=== PATIENT | male | born 1980 | race African-American/Black ===

== ENCOUNTER 2025-07-26 23:35 | Emergency (ER) | payer SELFPAY ==
[2025-07-26 23:36] VITALS: BP 99/84; PULSE 94; RESP 18; TEMP 36.6; O2SAT 100; BMI 20.8
== END 2025-07-26 23:45 | disposition left against medical advice (07) ==
LOC: ED 23:49
DX: Z00.00 Encounter for general adult medical examination without abnormal findings (principal)
CPT/HCPCS: 99281

== ENCOUNTER 2025-08-04 06:34 | Emergency (ER) | payer MEDICAID, SELFPAY ==
[2025-08-04 06:35] VITALS: BP 130/66; PULSE 70; RESP 18; TEMP 36.6; O2SAT 100; BMI 20.9
[2025-08-04] MEDS: Tetracaine 0.5% Ophthalmic Bottle 1 DRP RIGHT EYE (07:02)
--- NOTE | 2025-08-04 07:12 | EX.ED.VIS.EY ---
HPI History of Present Illness Chief Complaint: Eye Problem Informant: patient Narrative Narrative: Patient is a 44-year-old male who reports no significant past medical history. He states that he wears contacts but does not typically take them out to sleep. 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 He reports he went to bed normally and then woke this morning with right eye redness and pain. He states has been increased tearing and light sensitivity as well. He denies any direct trauma. He states that he did sleep in his contact. He states he cannot get the contact out of the right eye and with persistent pain he presents for evaluation. [facility] Medical History no medical history no medical history Home Medications ?Medication ?Instructions ?Recorded ?Last Taken ?Type ciprofloxacin HCl 0.3 % eye drops 2 drp RIGHT EYE 4X/DAY 5 days #10 08/04/25 Unknown Rx mL oxycodone-acetaminophen 5 mg-325 1 tab PO Q6H PRN pain 3 days #12 08/04/25 Unknown Rx mg tablet (Percocet) tabs Allergy/AdvReac Type Severity Reaction Status Date / Time No Known Allergies Allergy Verified 08/04/25 06:38 Social History Smoking Status: Current every day smoker tobacco type: e-cigarettes ROS ROS ED Constitutional Constitutional ED: Denies chills or fever(s) Eyes Eyes: Reports other Details: Positive right eye pain increased tearing and light sensitivity ENT ENT ED: Denies sore throat Cardiovascular Cardiovascular: Denies chest pain Respiratory/Chest Respiratory/Chest: Denies cough or dyspnea Gastrointestinal Gastrointestinal: Denies abdominal pain, diarrhea, nausea or vomiting Musculoskeletal Musculoskeletal: Denies myalgias Integumentary Denies rash Neurologic Neurologic: Denies headache(s) Hematologic/Lymphatic Hematologic/Lymphatic: Denies easy bleeding or easy bruising EXAM Physical Exam Const Vital Signs: 08/04/25 06:35 Temperature 98 F Temperature Source Oral Pulse Rate 70 Respiratory Rate 18 Blood Pressure 130/66 H Blood Pressure Mean 87 Pulse Ox 100 Oxygen Delivery Method Room Air Positive well nourished and well developed General Appearance ED: well developed HEENT HEENT Narrative: Normocephalic atraumatic Eyes PERRL and EOMs intact bilaterally Eyes Narrative: Pupils are equal reactive to light and accommodation and extraocular muscles are intact There is scleral injection present diffusely through the right eye with increased tearing. There is mild soft tissue swelling of both the upper and lower eyelid. The upper eyelid was everted there is no retained foreign body. The patient did receive complete relief of pain with tetracaine. I was able to remove the contact from the right eye. After this fluorescein was applied. This displayed a corneal abrasion around the 6 o'clock position over top the iris which correlates with the patient's symptoms. Negative Sidel sign. Remainder of the exam is normal Neck supple Resp normal respiratory effort and clear to auscultation bilaterally Cardio regular rate and regular rhythm Extremity normal to inspection Neuro oriented x3, CN's II-XII intact bilaterally, moves all extremities and no sensory deficits noted Sensorium / Orientation: alert Motor Exam: strength 5/5 throughout Psych mental status grossly normal Skin no rashes or lesions noted and no wounds MDM MDM MDM Narrative Medical decision making narrative: Patient presented to the ER with stable vitals. He reported nontraumatic pain to the right eye. 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 As physical exam was most consistent with a corneal abrasion I did not feel the need for imaging or laboratory studies as I have low concern for infection such as periorbital or orbital cellulitis. Physical exam did not show any sign of globe rupture as there was a negative Sidel sign. No hyphema was noted which also correlates with no reported trauma. Physical exam did show the retained contact which was removed and underneath this there is a corneal abrasion. At this time as the offending agent/the contact was removed and he does not have signs of globe rupture or secondary infection there is no need for emergent ophthalmology consultation. The patient be placed on ciprofloxacin eyedrops to prevent secondary infection from the corneal abrasion caused by the contact lens but is otherwise safe for discharge. History & Record Review Discussion w/independent historian: Patient Discharge Plan Triage Chief Complaint: Eye Problem ED Provider: Carlos A Hector Dx/Rx/DC Orders Clinical Impression: Corneal abrasion of right eye due to contact lens Instructions: ED Corneal Abrasion, ED Corneal Injury, Contact Lens Prescriptions: New ciprofloxacin HCl 0.3 % drops 2 drp RIGHT EYE 4X/DAY 5 Days Qty: 10 0RF oxycodone-acetaminophen [Percocet] 5-325 mg tablet 1 tab PO Q6H PRN (Reason: pain) 3 Days Qty: 12 0RF Stand Alone Forms: ED Work / School Excuse Primary Care Provider: Care Physician,No Primary Referrals: Dilip Mir MD [Med Staff - Active Staff, Opthamology] Referral Note: Corneal abrasion Care Physician,No Primary [Primary Care Provider, Medical] Activity Restrictions/Additional Instructions: The contact from the right eye was removed in the ER. Evaluation afterwards shows an abrasion to your right eye. This should heal spontaneously but will take on average 3 to 5 days. Use the prescribed antibiotic eyedrops to prevent secondary infection. Follow-up with ophthalmology for repeat evaluation and return to the ER should you have any further concerns Print Language: Thai Disposition Disposition: Home, Self Care Discharge Date/Time: 08/04/25 07:30
[2025-08-04 07:30] VITALS: BP 112/74; PULSE 69; RESP 14; TEMP 36.9; O2SAT 100
== END 2025-08-04 07:30 | disposition home or self-care (01) ==
LOC: ED 07:20
PROVIDERS: Emergency Provider Emergency Medicine; Visit Provider Emergency Medicine
DX: S05.01XA Injury of conjunctiva and corneal abrasion without foreign body, right eye, initial encounter (principal); F17.290 Nicotine dependence, other tobacco product, uncomplicated; X58.XXXA Exposure to other specified factors, initial encounter
CPT/HCPCS: 99282